=== PATIENT | female | born 1975 | race Caucasian/White ===

== ENCOUNTER 2016-11-23 07:25 | Inpatient (IN) | payer OTHER ==
[2016-11-23] MEDS ORDERED: LIDOCAINE 1% 300 MG/30 ML SDV ONE (07:41)
[2016-11-23] MEDS ORDERED: AMMONIA AROMATIC 1 EACH AMP IH ONE (07:41)
[2016-11-23] MEDS ORDERED: OLIVE OIL 118 ML BTL ONE (07:41)
[2016-11-23] MEDS ORDERED: TERBUTALINE SULFATE 1 MG/ML VIAL ONE (07:41)
[2016-11-23] MEDS ORDERED: OXYTOCIN 10 UNIT/ML VIAL ONE (07:42)
[2016-11-23] MEDS ORDERED: MISOPROSTOL 200 MCG TAB ONE (07:42)
[2016-11-23] MEDS ORDERED: EPSOM SALT 454 GM TP PRN (07:43)
[2016-11-23] MEDS ORDERED: OXYTOCIN/RINGERS LACTATE 1,000 ML IV PRN (07:43)
[2016-11-23] MEDS ORDERED: TERBUTALINE SULFATE 1 MG/ML VIAL IV PRN (07:43)
[2016-11-23] MEDS ORDERED: LR 1,000 ML IV PRN (07:43)
[2016-11-23] MEDS ORDERED: OLIVE OIL 118 ML BTL MISC PRN (07:43)
[2016-11-23] MEDS ORDERED: OXYTOCIN 20 UNIT in LR 1,000 ML IV SCH ×2 (08:00→08:30)
[2016-11-23] MEDS ORDERED: HYDROCORTISONE 0.5% CREAM TP PRN (08:09)
[2016-11-23] MEDS ORDERED: SIMETHICONE 80 MG TAB CHEW PO PRN (08:09)
[2016-11-23] MEDS ORDERED: ACETAMINOPHEN 325 MG TAB PO PRN (08:09)
[2016-11-23] MEDS ORDERED: OXYTOCIN/RINGERS LACTATE 1,000 ML IV SCH (08:30)
--- NOTE | 2016-11-23 09:38 | PDGENHP ---
History and Physical - Chief Complaint loss of fluid, painful contractions - History of Present Illness 40 yo @ 39.2 weeks presented with loss of fluid within the past 1-2 hours and painful contractions since 330AM today. When she presented to OB triage she was found to be painfully latanya and dilated to 10 cm. I was called to attend delivery. History Information - Allergies/Home Medication List Allergies/Adverse Reactions: gluten Allergy (Verified 12/02/12 23:44) lactase [From [employer]] Allergy (Verified 12/02/12 23:44) potatoes Allergy (Uncoded 12/02/12 23:44) Home Medications: Ferrous Sulfate [Iron] 05/03/12 [Last Taken 05/03/12 20:00] Herbals/Supplements -Info Only 05/03/12 [Last Taken 05/03/12 20:00] Vit27&Calcium/Iron/FA [] 2 PO DAILY 05/03/12 [Last Taken 20:00] I have personally reviewed and updated: family history, medical history, social history, surgical history Past Medical History: Celiac disease, GERD, amennorhea, infertility, advanced maternal age - Social History Smoking Status: Never smoked Review of Systems Review of Systems: Constitutional: Reports: no symptoms EENMT: Reports: no symptoms Cardiac: Reports: no symptoms Respiratory: Reports: no symptoms Gastrointestinal: Reports: no symptoms Genitourinary: Reports: pain. Denies: no symptoms Muscolosketal: Reports: no symptoms Skin: Reports: no symptoms Neurological: Reports: no symptoms Hematologic/Lymphatic: Reports: other (RH negative) Immunologic/Allergy: Reports: food allergy Physical Exam Physical Exam: General: No acute distress, appropriate response to pain with uterine contractions. HENT: MICKIE, normocephalic Lungs: CTAB, no wheezes, no rhonchi Heart: RRR, no m/r/g GI: gravid abdomen, size c/w dates, painful uterine contractions : CE: 10/100/+1/vertex Extremities: no excessive swelling Neurologic: AAOx3 Psychiatric: interacting appropriately Lab Data & Imaging Review GBS negative, Rh negative ( record reviewed) pending Assessment & Plan Assessment: 40 yo WF @ 39.2 weeks gestation with uncomplicated course with SROM and in active labor. Rh negative, GBS negative. Plan: Prepare for 2nd stage.
[2016-11-23 09:54] LABS: % IMMATURE GRANULYOCYTES 0.6 % (0.0-1.1); ABSOLUTE IMMATURE GRANULOCYTES 0.08 10^3/uL (0.00-0.10); ADD DIFF? NO; ADD MORPH? NO; ADD SCAN? NO; ATYPICAL LYMPHOCYTE FLAG 0 (0-99); FRAGMENT RBC FLAG 0 (0-99); HEMATOCRIT 34.7 % (38.0-47.0); HEMOGLOBIN 11.9 g/dL (12.6-16.3); LEFT SHIFT FLG 10 (0-99); LIPEMIA HEMOLYSIS FLAG 90 (0-99); MEAN CELL HEMOGLOBIN 33.7 pg (27.9-34.1); MEAN CELL HEMOGLOBIN CONCENTR. 34.3 g/dL (32.4-36.7); MEAN CELL VOLUME 98.3 fL (81.5-99.8); MEAN PLATELET VOLUME 10.7 fL (8.7-11.7); PLATELET CLUMPS FLAG 0 (0-99); PLATELET COUNT 229 10^3/uL (150-400); RED BLOOD CELL COUNT 3.53 10^6/uL (4.18-5.33); RED CELL DISTRIBUTION WIDTH 13.3 % (11.5-15.2)
--- NOTE | 2016-11-23 09:55 | OBDEL ---
Info Type: Vaginal Presentation at Delivery: Vertex L&D Analgesia/Anesthesia Type: None GBS+: No Intrapartum Medications: None - Hospital Course Intrapartum: 11/23/16 09:56 Patient presented with SROM and painful contractions. She was examined by RN at admission and found to have clear fluid at perineum and dilated to 10 cm. She was admitted and prepared for second stage of labor. Indications for Delivery: Spontaneous Labor, SROM Vaginal Delivery - Delivery Provider Delivery Physician/CNM: Rolando Jeffries - Labor and Delivery Onset of Contractions Date: 11/23/16 Onset of Contractions Time: 03:30 Onset of Contractions Type: Spontaneous Rupture of Membranes Date: 11/23/16 Rupture of Membranes Type: Spontaneous Amniotic Fluid Color: Clear Dilation Complete Date: 11/23/16 Dilation Complete Time: 07:20 Vaginal Sponge Count Correct: Yes Vaginal Needle Count Correct: Yes Vaginal Sweep Performed: Yes EBL: 250 m Delivery Events: Nuchal Cord (x1, reduced before delivery of head) Data Abbasi Delivery Date: 11/23/16 Delivery Time: 07:47 DECLAN: 11/28/16 Gestational Age: 39 week(s) and 2 day(s) Sex of Infant: Male Score (1 Min): 8 Score (5 Min): 9 Shoulder Dystocia Time Head Delivered: 07:47 Time Body Delivered: 07:47 ICD10 Worksheet Patient Problems: Problems Problem Status Onset (spontaneous vaginal delivery) Acute - ICD10 Problem Qualifiers (1) (spontaneous vaginal delivery)
[2016-11-23] MEDS: IBUPROFEN 600 MG TAB PO PRN (11:31)
[2016-11-23] MEDS: DOCUSATE SODIUM 100 MG CAP PO PRN (11:32)
[2016-11-23 16:51] VITALS: RESP 16
[2016-11-23] MEDS: FERROUS SULFATE 325 MG TAB PO SCH (20:46)
[2016-11-23 21:28] VITALS: O2SAT 97
[2016-11-24] MEDS: IBUPROFEN 600 MG TAB PO PRN (09:12)
[2016-11-24] MEDS: FERROUS SULFATE 325 MG TAB PO SCH (09:13)
[2016-11-24] MEDS: DOCUSATE SODIUM 100 MG CAP PO PRN (09:13)
[2016-11-24 12:00] VITALS: BP 111/74; PULSE 73; TEMP 98
--- NOTE | 2016-11-24 14:31 | PDDCSUM ---
Discharge Summary Discharge Summary: S) pt doing well, desires d/c home at this time; going well O) VSS Exam: head: normocephalic, atraumatic CV: RRR, no murmur Resp: CTA-B Abd: soft, nontender uterus: firm @ U-2 lochia: min rubra extremities: neg edema, negative pranav's sign neuro: grossly normal A) [id number] s/p P) plan to d/c home today routine PP care infection S&S discussed pelvic rest x 6 weeks RTO in 4 and 6 weeks
== END 2016-11-24 14:45 | disposition home or self-care (01) | DRG 775 ==
LOC: FLD 07:25 → FOB 11:17
PROVIDERS: ADMIT Obstetrics & Gynecology Gynecology; ATTEND Obstetrics & Gynecology Gynecology
PROC: 10E0XZZ Delivery of Products of Conception, External Approach (ICD-10-PCS; principal; 2016-11-23)
DX: O69.81X0 Labor and delivery complicated by cord around neck, without compression, not applicable or unspecified (principal); Z3A.39 39 weeks gestation of pregnancy; Z37.0 Single live birth
CPT/HCPCS: J3105